=== PATIENT | female | born 1955 | race Two or more races ===

== ENCOUNTER 2024-03-15 16:57 | Emergency (ER) | payer MEDICAID, MEDICARE, OTHER ==
[~2024-03-15] VITALS: Ht 154.9 cm; Wt 74.0 kg
[2024-03-15] MEDS: hydrALAZINE HCL 10 MG TAB PO ONE (17:37)
--- NOTE | 2024-03-15 18:00 | ED.PDOC ---
History of Present Illness HPI Comments 68 y.o female presents to the ED for an evaluation of high blood pressure associated with abdominal pain. Patient reports uncontrolled HBP for many years, has recently switched to a new medication x 1 month ago but states abdominal pain presented shortly after. Patient states despite taking medication, her blo od pressure has been reading in the 200's systolic. Patient was seen at a hospital when abdominal presented, had CT scan done but was told everything was normal. Patient at this time wants blood pressure controlled and abdominal pain addressed and does not want any other further intervention. His blood pressure on arrival was 237/108. Chief Complaint: High Blood Pressure Time Seen by MD: 17:46 Primary Care Provider: NONE Reviewed Notes: Nurses Notes, Medications, Allergies Allergies: Coded Allergies: Hydromorphone (Verified Allergy, Unknown, 03/15/24) Information Source: Patient Mode of Arrival: Ambulatory Severity: Moderate Timing: Came on: Gradually Duration: Since onset Prehospital treatment: None Past Medical History PAST MEDICAL HISTORY: HTN Surgical History: Denies all surgeries MANAGER OPERATING History: No Pertinent MANAGER OPERATING History Family History Family History: Reviewed,noncontributory to illness Social History Smoker: Non-Smoker Alcohol: Denies ETOH Use Drugs: Denies Drug Use Lives In: Home Constitutional: denies: chills, diaphoresis, fatigue, fever, malaise, sweats, weakness, others EENTM: denies: blurred vision, double vision, ear bleeding, ear discharge, ear drainage, ear pain, ear ringing, eye pain, eye redness, hearing loss, mouth pain, mouth swelling, nasal discharge, nose bleeding, nose congestion, nose pain, photophobia, tearing, throat pain, throat swelling, voice changes, others Respiratory: denies: cough, hemoptysis, orthopnea, SOB at rest, shortness of breath, SOB with excertion, stridor, wheezing, others Cardiovascular: denies: chest pain, dizzy spells, diaphoresis, Dyspnea on exertion, edema, irregular heart beat, left arm pain, lightheadedness, palpitations, PND, syncope, others Gastrointestinal: reports: abdominal pain; denies: abdomen distended, blood streaked bowels, constipated, diarrhea, dysphagia, difficulty swallowing, hematemesis, melena, nausea, poor appetite, poor fluid intake, rectal bleeding, rectal pain, vomiting, others Genitourinary: denies: abnormal vagina bleeding, burning, dyspareunia, dysuria, flank pain, frequency, hematuria, incontinence, pain, , vagina discharge, urgency, others Neurological: denies: dizziness, fainting, headache, left sided numbness, left sided weakness, numbness, paresthesia, pre-existing deficit, right sided numbness, right sided weakness, seizure, speech problems, tingling, tremors, weakness, others Musculoskeletal: denies: back pain, gout, joint pain, joint swelling, muscle pain, muscle stiffness, neck pain, others Integumetry: denies: bruises, change in color, change in hair/nails, dryness, laceration, lesions, lumps, rash, wounds, others Allergic/Immunocompromised: denies: Difficulty Healing, Frequent Infections, Hives, Itching, others Hematologic/Lymphatic: denies: anemia, blood clots, easy bleeding, easy bruising, swollen glands, others Endocrine: denies: excessive hunger, excessive sweating, excessive thirst, excessive urination, flushing, intolerance to cold, intolerance to heat, unexplained weight gain, unexplained weight loss, others Psychiatric: denies: anxiety, bipolar disorder, depression, hopeless, panic disorder, schizophrenia, sleepless, suicidal, others All Other Systems: Reviewed and Negative Physical Exam General Appearance: Moderate Distress (Bdog-rb-dsojwltr distress due to abdominal pain concerns.), Obese HEENT: Normal ENT Inspection, Pharynx Normal, TMs Normal Neck: Full Range of Motion, Non-Tender, Normal, Normal Inspection Respiratory: Chest Non-Tender, Lungs Clear, No Accessory Muscle Use, No Respiratory Distress, Normal Breath Sounds Cardiovascular: No Edema, No JVD, No Murmur, No Gallop, Normal Peripheral Pulses, Regular Rate/Rhythm Breast Exam: Deferred Gastrointestinal: Other (Diffuse periumbilical tenderness to palpation. No pulsatile masses. No signs of trauma. Abdomen was reasonably soft.) Genitalia: Deferred Pelvic: Deferred Rectal: Deferred Extremities: No calf tenderness, Normal capillary refill, Normal inspection, Normal range of motion, Non-tender, No pedal edema Neurologic: Alert, whipper II-XII nml as Tested, No Motor Deficits, Normal Affect, Normal Mood, No Sensory Deficits Cerebellar Function: Normal Reflexes: Normal Skin: Dry, Normal Color, Warm Lymphatic: No Adenopathy Was a procedure done? Was a procedure done?: No Differential Dx Considerations may include: HTN accelerated, HTN essential, PA, sepsis, electrolyte abnormality X-Ray, Labs, Meds, VS Vital Signs Date Time Temp Pulse Resp B/P (MAP) Pulse Ox O2 Delivery O2 Flow Rate FiO2 03/15/24 21:19 03/15/24 21:18 03/15/24 20:33 211/94 03/15/24 20:10 55 15 100 Room Air* 0 21 03/15/24 20:10 98.5 55 15 / (133) 100 98.5 03/15/24 19:44 63 03/15/24 17:37 237/108 03/15/24 17:27 97.7 66 16 237/99 (145) 99 97.7 237/105 (149) 03/15/24 16:57 97.7 66 16 237/99 (145) 99 Lab Test 03/15/24 22:44 03/15/24 20:02 03/15/24 18:26 Range/Units Troponin I High Sensitivity Pending 545 *H 573 *H </=34 ng/L White Blood Count 6.0 4.4-10.8 10^3/uL Red Blood Count 4.32 4.0-5.20 10^6/uL Hemoglobin 12.7 12.2-16.2 g/dL Hematocrit 38.1 36.0-46.0 % Mean Corpuscular Volume 88.3 80.0-100.0 fL Mean Corpuscular Hemoglobin 29.4 28.0-32.0 pg Mean Corpuscular Hemoglobin Concent 33.3 32.0-36.0 g/dL Red Cell Distribution Width 13.9 11.8-14.3 % Platelet Count 191 140-450 10^3/uL Mean Platelet Volume 11.0 H 6.9-10.8 fL Neutrophils (%) (Auto) 55.3 37.0-80.0 % Lymphocytes (%) (Auto) 36.0 10.0-50.0 % Monocytes (%) (Auto) 6.5 0.0-12.0 % Eosinophils (%) (Auto) 1.7 0.0-7.0 % Basophils (%) (Auto) 0.5 0.0-2.0 % Neutrophils # (Auto) 3.3 1.6-8.6 10 ^3/uL Lymphocytes # (Auto) 2.2 0.4-5.4 10 ^3/uL Monocytes # (Auto) 0.4 0-1.3 10 ^3/uL Eosinophils # (Auto) 0.1 0-0.8 10 ^3/uL Basophils # (Auto) 0 0-0.2 10 ^3/uL Nucleated Red Blood Cells 0.1 % Sodium Level 140 136-145 mmol/L Potassium Level 3.9 3.5-5.1 mmol/L Chloride Level 108 H 98-107 mmol/L Carbon Dioxide Level 25 20-31 mmol/L Anion Gap 7 5-15 Blood Urea Nitrogen 16 9-23 mg/dL Creatinine 0.97 0.550-1.02 mg/dL Glomerular Filtration Rate Calc 64 >90 mL/min BUN/Creatinine Ratio 16.5 10.0-20.0 Serum Glucose 82 74-106 mg/dL Calcium Level 10.1 8.7-10.4 mg/dL Current Medications Medications (Trade) Dose Ordered Sig/Angelica Route Start Time Stop Time Status Last Admin Hydralazine HCl (Apresoline Tablet) 10 mg ONCE ONCE PO 03/15/24 17:30 03/15/24 17:31 DC 03/15/24 17:37 Dicyclomine HCl (Bentyl Injection) 20 mg ONCE ONCE IM 03/15/24 18:00 03/15/24 18:01 DC 03/15/24 18:14 Clonidine HCl (Catapres Tablet) 0.2 mg ONCE ONCE PO 03/15/24 20:30 03/15/24 20:31 DC 03/15/24 20:33 Hydralazine HCl (Apresoline Injection) 10 mg ONCE ONCE IV 03/15/24 20:30 03/15/24 20:31 DC 03/15/24 21:18 X-Ray, Labs, Meds, VS Comment Patient's serum laboratories were relatively unremarkable, but patient's troponins were over 500. EKG showed a sinus rhythm with a rate of 63. Probable left atrial enlargement, LVH with secondary repolarization abnormality and baseline wander lead V6. AL interval was 68 and QT interval 452. Patient's blood pressure was finally reduced and patient stated she want to leave the facility. Advised the patient that I would like to transfer to [facility] for continued evaluation to address her elevated tropes abdominal pain concerns, but the patient stated that she needed to go home. I advised the patient that leaving could lead to serious medical consequences including . Patient stated she understood. Patient signed an AMA form prior to leaving the campus. Patient states she will follow up at [facility] tomorrow for continued evaluation. Patient has a heart score of five. Time of 1ST Reevaluation: 22:54 Reevaluation 1ST: Improved Consultation: PCP, Cardiology Patient Education/Counseling: Diagnosis, Treatment Family Education/Counseling: Diagnosis, Treatment, No Family Present Departure 1 Departure Time of Disposition: 22:54 Impression: Primary Impression: Hypertensive urgency Additional Impression: Elevated troponin Disposition: LEFT AGAINST MEDICAL ADVICE Condition: Fair Discharged With: Self Critical Care Note Critical Care Time?: No Stability Stability form required: No I personally scribed for KATRIN PHILLIPS PAC ([email or web address]) on 03/15/24 at 18:00. Electronically submitted by Azucena Ivory ([email or web address]). KATRIN PHILLIPS PAC Mar 15, 2024 18:00
[2024-03-15] MEDS: DICYCLOMINE HCL (10MG/ML) 2 ML AMPULE IM ONE (18:14)
[2024-03-15 18:46] LABS: Basophils # (auto) 0 10 ^3/uL (0-0.2); Basophils % (auto) 0.5 % (0.0-2.0); Eosinophils # (auto) 0.1 10 ^3/uL (0-0.8); Eosinophils % (auto) 1.7 % (0.0-7.0); Hematocrit 38.1 % (36.0-46.0); Hemoglobin 12.7 g/dL (12.2-16.2); Lymphocytes # (auto) 2.2 10 ^3/uL (0.4-5.4); Mean Corpuscular Hemoglobin 29.4 pg (28.0-32.0); Mean Corpuscular Hgb Conc. 33.3 g/dL (32.0-36.0); Mean Corpuscular Volume 88.3 fL (80.0-100.0); Monocytes # (auto) 0.4 10 ^3/uL (0-1.3); Monocytes % (auto) 6.5 % (0.0-12.0); Neutrophils # (auto) 3.3 10 ^3/uL (1.6-8.6); Neutrophils % (auto) 55.3 % (37.0-80.0); Nucleated Red Blood Cells % 0.1 %; Platelet Count (auto) 191 10^3/uL (140-450); Red Blood Cells 4.32 10^6/uL (4.0-5.20); Red Cell Distribution Width 13.9 % (11.8-14.3)
[2024-03-15 18:54] LABS: Potassium 3.9 mmol/L (3.5-5.1); Sodium 140 mmol/L (136-145)
[2024-03-15 18:55] LABS: Anion Gap 7 (5-15); Carbon Dioxide 25 mmol/L (20-31)
[2024-03-15 18:56] LABS: Calcium 10.1 mg/dL (8.7-10.4)
[2024-03-15 18:59] LABS: Chloride 108 mmol/L (98-107)
[2024-03-15 19:00] LABS: BUN/Creatinine Ratio 16.5 (10.0-20.0); Blood Urea Nitrogen 16 mg/dL (9-23); Glucose 82 mg/dL (74-106)
--- NOTE | 2024-03-15 19:45 | ECG ---
[facility] Test Date: 2024-03-15 Test Time: 19:44:19 Pat Name: NATALIYA SILVERIO Department: ER Room: Gender: F Restaurant Cook: PHILIPPE : 1955 Requested By: KATRIN PHILLIPS Order Number: [id number] Reading MD: Roberth Landon Measurements Intervals [place] Rate: 63 P: 69 PA: 168 QRS: -14 QRSD: 92 T: 183 QT: 452 QTc: 463 Interpretive Statements Sinus rhythm Probable left atrial enlargement LVH with secondary repolarization abnormality Baseline wander in lead(s) V6 Electronically Signed On 03-22-2024 9:49:06 PST by Roberth Landon Please click the below link to view image of tracing.
[2024-03-15 20:10] VITALS: PULSE 55; RESP 15; O2SAT 100
[2024-03-15] MEDS: cloNIDine HCL 0.1 MG TAB PO ONE (20:33)
[2024-03-15] MEDS: hydrALAZINE HCL 20 MG/ML VL IV ONE (21:18)
[2024-03-15 22:50] VITALS: BP 174/70; PULSE 60; RESP 18; TEMP 98.5; O2SAT 100
== END 2024-03-15 22:50 | disposition left against medical advice (07) ==
LOC: ER 16:57
DX: I16.0 Hypertensive urgency (principal); I10 Essential (primary) hypertension; R79.89 Other specified abnormal findings of blood chemistry; Z88.5 Allergy status to narcotic agent
CPT/HCPCS: 36415; 80048; 84484; 85025; 93005; 96372; 96374; 99284; J0360; J0500